=== PATIENT | male | born 1960 | race Caucasian/White ===

== ENCOUNTER 2016-12-17 08:33 | Day surgery (SDC) | payer MEDICARE, OTHER ==
[2016-12-15 15:37] VITALS: BMI 28.3
[~2016-12-17 08:33] MED LIST: ACETAMINOPHEN TAB 500 MG TAB PO ONE; DEXAMETHASONE SOD PHOSPHATE 10 MG/ML 1 ML VIAL IV ONE; FAMOTIDINE 20 MG/2 ML VIAL IV ONE; HYDROmorphone 1 MG/ML 1 ML SYRINGE IVP PRN; LACTATED RINGERS 1,000 ML IV SCH; LIDOCAINE 1% 20 ML VIAL (10MG/ML) FOR IV START INTRADERMA PRN; MIDAZOLAM 2 MG/2 ML VIAL IV PRN; ONDANSETRON 4 MG/2 ML VIAL IVP ONE; Pre Op ABX Message 1 EACH MISC MISCELLANE ONE; SCOPOLAMINE 1.5MG/72HR PATCH TRANSDERM ONE
[2016-12-17 09:29] LABS: Glucose,Whole Blood 134 mg/dL (75-99)
[2016-12-17] MEDS ORDERED: LIDOCAINE 1% INJ 10MG/ML (20 ML MDV) ONE ×2 (10:00)
[2016-12-17] MEDS ORDERED: PROPOFOL 10 MG/ML 20 ML VIAL IV ONE (10:00)
[2016-12-17] MEDS ORDERED: CIPROFLOXACIN-DEXAMETH 0.3-0.1% DROPS 7.5 ML BTL LEFT EAR ONE (10:14)
[2016-12-17 10:41] VITALS: TEMP 97
[2016-12-17] MEDS ORDERED: LACTATED RINGERS 1,000 ML IV ONE (10:44)
--- NOTE | 2016-12-17 10:53 | P.OP ---
Date of Procedure: 12/17/16 Preoperative Diagnosis: Eustachian tube dysfunction Chronic otitis media with effusion left ear Atrophic tympanic membrane Postoperative Diagnosis: Same Procedure(s) Performed: Left direct microscopic tympanostomy and tube placement with myringoplasty Anesthesia: MAC Surgeon: Luis Miguel Johansen Estimated Blood Loss (ml): 0 Pathology: none sent Condition: stable Disposition: PACU Indications for Procedure: This patient has had a persistent hearing losses eustachian tube dysfunction and left middle ear effusion. A ventilation tube was recommended. The ventilation tubes have not helped because of his severe atrophic changes and a T -tube was advised along with an examination of the ear under anesthesia. Operative Findings: Patient had a very thin atrophic tympanic membrane that was retracted with fluid present. We placed a T-tube but had to do a myringoplasty on the anterior portion of the tympanic membrane for the very thin drum to hold the tube. Description of Procedure: This patient was taken to the operative room and placed in the supine position. A general inhalation anesthetic was administered the patient by mask and subsequently monitored throughout the entire case by the department of anesthesia. A tympanostomy incision was made inferiorly fluid was suctioned and the drum was extremely thin and friable. The tube was placed utilizing a T- tube but the anterior portion of tympanic membrane was unable to hold the tube because of this thinness. We then prepped the edge of the eardrum with a [address] and cut a bilobed design graft in place that as an overlay graft to shore up the tympanic membrane to hold the tube. The drumhead was prepped with a house pick and the graft was placed in a position holding the anterior limb of the T-tube. The patient tolerated this well. Fluid was suctioned from the middle ear space and the patient is to follow-up in the office in 1 week for recheck.
[2016-12-17 11:01] VITALS: RESP 18
[2016-12-17 11:12] VITALS: BP 121/78; PULSE 71
== END 2016-12-17 11:29 | disposition home or self-care (01) ==
LOC: OR 08:33
PROVIDERS: ATTEND Otolaryngology
DX: H73.822 Atrophic nonflaccid tympanic membrane, left ear (principal); H69.92 Unspecified Eustachian tube disorder, left ear; H65.492 Other chronic nonsuppurative otitis media, left ear; I10 Essential (primary) hypertension; E78.5 Hyperlipidemia, unspecified; E11.9 Type 2 diabetes mellitus without complications; E07.9 Disorder of thyroid, unspecified; F32.9 Major depressive disorder, single episode, unspecified; F79 Unspecified intellectual disabilities; Z79.84 Long term (current) use of oral hypoglycemic drugs; Z79.899 Other long term (current) drug therapy
CPT/HCPCS: 69620; C1763; J1100; J2405; J2001; J2704

== ENCOUNTER 2017-01-13 09:23 | Day surgery (SDC) | payer MEDICARE, OTHER ==
[2017-01-08 09:33] VITALS: BMI 28.3
[~2017-01-13 09:23] MED LIST changes: -ACETAMINOPHEN TAB 500 MG TAB PO ONE; -DEXAMETHASONE SOD PHOSPHATE 10 MG/ML 1 ML VIAL IV ONE; -FAMOTIDINE 20 MG/2 ML VIAL IV ONE; -HYDROmorphone 1 MG/ML 1 ML SYRINGE IVP PRN; -MIDAZOLAM 2 MG/2 ML VIAL IV PRN; -ONDANSETRON 4 MG/2 ML VIAL IVP ONE; -Pre Op ABX Message 1 EACH MISC MISCELLANE ONE; -SCOPOLAMINE 1.5MG/72HR PATCH TRANSDERM ONE
[2017-01-13 09:47] VITALS: TEMP 98.1
[2017-01-13 10:02] LABS: Glucose,Whole Blood 94 mg/dL (75-99)
[2017-01-13] MEDS ORDERED: LIDOCAINE 1% INJ 10MG/ML (20 ML MDV) ONE (10:14)
[2017-01-13] MEDS ORDERED: PROPOFOL 10 MG/ML 20 ML VIAL IV ONE (10:14)
--- NOTE | 2017-01-13 10:20 | P.GSHP ---
History of Present Illness H&P Date: 01/13/17 Chief Complaint: Abdominal pain, screening Patient here today for colonoscopy. Per the records he is having some vague abdominal discomforts. He is also due for a screening colonoscopy. No bowel related complaints that I'm aware of at this time. Patient is not able to provide any significant history because of his mental disability. Past Medical History Past Medical History: Diabetes Mellitus, Thyroid Disorder Additional Past Medical History / Comment(s): ENVIRONMENTAL ALLERGIES, MENTALLY DISABLED, SCOLIOSIS, WEARS LEFT KNEE BRACE-KNEE OCCASIONALLY "POPS OUT "., having lower abdominal pain History of Any Multi-Drug Resistant Organisms: None Reported Past Surgical History: Ear Surgery, Hernia Repair, Orthopedic Surgery Additional Past Surgical History / Comment(s): RT KNEE TENDON SURGERY, TESTICLE REMOVED. Past Anesthesia/Blood Transfusion Reactions: Family History of Problems w/ Anesthesia Additional Past Anesthesia/Blood Transfusion Reaction / Comment(s): SISTER=PONV Past Psychological History: Anxiety Additional Psychological History / Comment(s): mentally disabled Smoking Status: Never smoker Past Alcohol Use History: None Reported Past Drug Use History: None Reported - Past Family History Sister(s) Family Medical History: Cancer Additional Family Medical History / Comment(s): KIDNEY CANCER Medications and Allergies Home Medications Medication Instructions Recorded Confirmed Type Cetirizine HCl 10 mg PO HS 02/05/16 01/13/17 History Escitalopram [Lexapro] 10 mg PO DAILY 02/05/16 01/13/17 History Levothyroxine Sodium [Synthroid] 75 mcg PO DAILY 02/05/16 01/13/17 History Multivitamin/Iron/Folic Acid 1 each PO DAILY 02/05/16 01/13/17 History [Centrum Complete Multivit Tab] Canagliflozin [Invokana] 100 mg PO QAM 12/15/16 01/13/17 History Simvastatin [Zocor] 40 mg PO PC-SUPPER 12/15/16 01/13/17 History metFORMIN HCL ER [Glucophage Xr] 500 mg PO QAM 12/15/16 01/13/17 History Allergies Allergy/AdvReac Type Severity Reaction Status Date / Time No Known Allergies Allergy Verified 01/13/17 09:47 Surgical - Exam Vital Signs Temp Pulse Resp BP Pulse Ox 98.1 F 89 20 131/72 99 01/13/17 09:46 01/13/17 09:46 01/13/17 09:46 01/13/17 09:46 01/13/17 09:46 Physical exam: General: Well-developed, well-nourished HEENT: Normocephalic, sclerae nonicteric Abdomen: Nontender, nondistended Extremities: No edema Neuro: Alert learning disabled Assessment and Plan (1) Colon cancer screening Narrative/Plan: Will proceed with colonoscopy at this time. Status: Acute
--- NOTE | 2017-01-13 10:39 | P.PCN ---
Date of Procedure: 01/13/17 Preoperative Diagnosis: Postoperative Diagnosis: Procedure(s) Performed: PREOPERATIVE DIAGNOSIS: Screening, abdominal pain POSTOPERATIVE DIAGNOSIS: Sigmoid colon polyp PROCEDURE: Colonoscopy with snare polypectomy ANESTHESIA: MAC SURGEON: Donis Maldonado M.D. SPECIMENS: Sigmoid colon polyp ENDOSCOPIC PROCEDURE: The patient was placed on the endoscopy table in the left decubitus position. The Olympus colonoscope was inserted into the anus and passed under direct visualization to the base of the cecum. The appendiceal orifice was visualized. From that point the scope was slowly withdrawn inspecting all surfaces carefully. There were no neoplastic inflammatory or polypoid lesions throughout the cecum, ascending, transverse, and descending colon. In the sigmoid colon a small polyp was identified and removed using the snare with cautery technique. The remainder of the sigmoid and rectum was normal. There was no diverticulosis. Digital rectal examination was normal. The patient was taken to the recovery room in stable condition per anesthesia guidelines. RECOMMENDATIONS: Await biopsy results. Implants: Indications for Procedure: Operative Findings: Description of Procedure:
[2017-01-13 10:49] VITALS: RESP 18
[2017-01-13 11:15] VITALS: BP 106/70; PULSE 82
== END 2017-01-13 11:54 | disposition home or self-care (01) ==
LOC: ORWHC2ENDO 09:23
PROVIDERS: ATTEND Surgery
DX: K63.5 Polyp of colon (principal); E11.9 Type 2 diabetes mellitus without complications; Z79.84 Long term (current) use of oral hypoglycemic drugs; E07.9 Disorder of thyroid, unspecified; F41.9 Anxiety disorder, unspecified; Z79.899 Other long term (current) drug therapy
CPT/HCPCS: 88305; 45385; J2001; J2704

== ENCOUNTER → 2017-02-19 | Outpatient (CLI) | payer MEDICARE, OTHER ==
--- NOTE | 2017-02-19 08:45 | CT ---
EXAMINATION TYPE: CT abdomen wo con DATE OF EXAM: 02/19/2017 COMPARISON: NONE HISTORY: 56-year-old male with abdominal pain TECHNIQUE: Contiguous axial scanning of the abdomen without IV contrast. Coronal and sagittal reconst ructions performed. CT DLP: 256.8 mGycm Automated exposure control for dose reduction was used. FINDINGS: Heart is normal size. Coronary vessel calcifications are present in remarkable for coronary artery di sease. Some strandy atelectasis or scar at the left base. There is a moderate-sized fat-containing left Bochdalek hernia. Noncontrast appearance of the liver, gallbladder, adrenal glands, spleen, and pancreas within normal limits. Subcentimeter hypodensity anterior mid pole right kidney too small for accurate CT characterization, probable cyst. There is a 1.4 cm nonobstructive calculus in the lower pole right kidney and a punctat e 2 mm calculus midpole left kidney. No hydronephrosis on either side. Tiny fatty umbilical hernia. No mesenteric or retroperitoneal lymphadenopathy. No dilated small bowel, free fluid, or free air. There is liquid stool throughout the right hemicolon and transverse colon. No pericolonic inflammator y changes seen. Note that the pelvis is not included on this examination. Bones: Degenerative disc disease lower lumbar spine. There is a levoconvex scoliosis centered along the thoracolumbar junction. IMPRESSION: 1. LIQUID STOOL WITHIN THE COLON. CORRELATE FOR ENTERITIS OR COLONIC ILEUS. 2. NONOBSTRUCTIVE 1.4 CM RIGHT RENAL CALCULUS AND A PUNCTATE 2 MM NONOBSTRUCTIVE CALCULUS ON THE LEFT . 3. A SUBCENTIMETER HYPODENSITY WITHIN THE MID RIGHT KIDNEY IS TOO SMALL FOR ADEQUATE CT CHARACTERIZAT ION BUT PROBABLY REPRESENTS A CYST. 4. NOTE THAT THE PELVIS IS NOT INCLUDED ON THIS EXAM. 5. LEVOSCOLIOSIS.
== END | disposition home or self-care (01) ==
LOC: RADCTMAIN 08:09
PROVIDERS: ATTEND Family Medicine
DX: N20.0 Calculus of kidney (principal)
CPT/HCPCS: 74150

== ENCOUNTER → 2017-08-12 | Outpatient (CLI) | payer MEDICARE, OTHER ==
[2017-08-12 11:41] LABS: Blood Urea Nitrogen 23 mg/dL (9-20); Non-African American GFR(MDRD) >60 (>60 ml/min/1.73 sqM)
--- NOTE | 2017-08-12 13:14 | CT ---
EXAMINATION TYPE: CT iac w con DATE OF EXAM: 08/12/2017 COMPARISON: NONE HISTORY: Hearing loss CT DLP: 150.00 mGycm Automated exposure control for dose reduction was used. CONTRAST: CT scan of the IACs is performed with IV Contrast, patient injected with 100 ml mL of Omnipaque 300. FINDINGS: Portion of the torus tubarius and fossa of Rosenmuller within the naxrb-ov-uosr is normal. There is mucosal thickening within the maxillary sinuses. Mild mucosal thickening is within ethmoid a ir cells. Frontal sinuses are aplastic. Sphenoid sinuses are clear. Adult Parole Officer spaces appear within normal limits. There is under pneumatization of the bilateral mastoid air cells. The upper mastoid air cells are thee ar. Lower mastoid air cells contain a small amount of fluid. Portions of the brain with contrast appear within normal limits. Anterior communicating artery is pat ent. Anterior and middle cerebral artery branching appears normal. Globes are symmetrical. Optic nerves are unremarkable. Attention is paid to the internal auditory canals. No suspicious expansion or erosion is evident. Anna hlea appear within normal limits. There is a high riding left jugular bulb. Some debris may be within the left external auditory canal. Incus and malleus have normal orientation. No suspicious cerebellar pontine angle masses are evident. No suspicious enhancement within the inter nal auditory canals is evident. The scutum are normal. Attics are clear. Semicircular canals are norm al. Vertebral arteries are normal. Internal carotid arteries appear normal. Ostiomeatal units are patent. IMPRESSION: 1. Normal internal auditory canal study. 2. Mild mucosal thickening within scattered ethmoid and maxillary sinuses discussed above. 3. Mild bilateral mastoiditis
== END | disposition home or self-care (01) ==
LOC: RADCTMAIN 10:57
PROVIDERS: ATTEND Otolaryngology
DX: H70.93 Unspecified mastoiditis, bilateral (principal); J34.89 Other specified disorders of nose and nasal sinuses
CPT/HCPCS: 82565; 84520; 70481; 36415; Q9967

== ENCOUNTER 2017-09-23 09:56 | Day surgery (SDC) | payer MEDICARE, OTHER ==
[2017-09-15 10:56] VITALS: BMI 26.7
[~2017-09-23 09:56] MED LIST changes: +DEXAMETHASONE SOD PHOSPHATE 10 MG/ML 1 ML VIAL IV ONE; +DEXAMETHASONE SOD PHOSPHATE 4 MG/ML 1 ML VIAL IV ONE; +FAMOTIDINE 20 MG/2 ML VIAL IV ONE; +HYDROmorphone 0.5 MG/0.5 ML SYRINGE IVP PRN; -LACTATED RINGERS 1,000 ML IV SCH; -LIDOCAINE 1% 20 ML VIAL (10MG/ML) FOR IV START INTRADERMA PRN; +MIDAZOLAM 2 MG/2 ML VIAL IV PRN; +ONDANSETRON 4 MG/2 ML VIAL IVP ONE; +Pre Op ABX Message 1 EACH MISC MISCELLANE ONE
[2017-09-23 11:24] VITALS: TEMP 97
[2017-09-23 11:38] LABS: Glucose,Whole Blood 135 mg/dL (75-99)
[2017-09-23] MEDS: LACTATED RINGERS 1,000 ML IV SCH ×2 (11:38→13:36)
[2017-09-23] MEDS: OXYMETAZOLINE 0.05% NASL SPRAY 1 SPRAY BOTTLE NASAL ONE ×5 (11:49→12:09)
[2017-09-23] MEDS ORDERED: MIDAZOLAM 2 MG/2 ML VIAL ONE (13:38)
[2017-09-23] MEDS ORDERED: PROPOFOL 10 MG/ML 20 ML VIAL IV ONE (13:38)
[2017-09-23] MEDS ORDERED: SUCCINYLCHOLINE CHLORIDE 100 MG/5 ML SYR IV ONE (13:38)
[2017-09-23] MEDS ORDERED: fentaNYL (PF) 50 MCG/ML 2 ML AMP ONE (13:38)
[2017-09-23] MEDS ORDERED: CIPROFLOXACIN-DEXAMETH 0.3-0.1% DROPS 7.5 ML BTL BOTH EARS ONE (14:06)
[2017-09-23] MEDS ORDERED: LACTATED RINGERS 1,000 ML IV ONE ×2 (14:41)
--- NOTE | 2017-09-23 14:42 | P.OP ---
Date of Procedure: 09/23/17 Preoperative Diagnosis: Chronic otitis media with effusion Eustachian tube dysfunction Hypertrophy of inferior nasal turbinates Postoperative Diagnosis: Same Procedure(s) Performed: Bilateral direct microscopic tympanostomy and tube placement Bilateral eustachian tuboplasty, balloon, endoscopic Bilateral submucosal resection of the posterior inferior turbinates with outfracturing compression Anesthesia: ROLAND Surgeon: Luis Miguel Johansen Estimated Blood Loss (ml): 5 Pathology: none sent Condition: stable Disposition: PACU Indications for Procedure: This patient has persistent chronic otitis media with effusion conductive hearing loss and eustachian tube dysfunction. He has hypertrophy of the posterior inferior turbinates causing compression of the eustachian tube. Tympanostomy and tube placement along with a balloon eustachian tuboplasty and removal of that hypertrophic area of the inferior turbinates bilaterally was recommended. Consent was obtained and all questions were answered Operative Findings: Patient was found have a bilateral middle ear effusion. Large obstructive inferior turbinates posteriorly are noted and the station too edema seen. Description of Procedure: Prior to surgery, all risks, benefits, and alternative therapies were discussed again with the patient and family. Risks of bleeding, need for second tubes, perforation, early extrusion of tubes, etc. etc. were explained. All questions were answered and a consent was obtained. This patient was taken to the operative room and placed in the supine position. Mask inhalation anesthesia was performed by the department of anesthesia. The patient was monitored throughout the entire case by the department of anesthesia. Both tympanic membranes were visualized with an operating Zeiss microscope. Cerumen and epithelial debris was removed from the external auditory canals bilaterally. The tympanic membranes were visualized under an operative microscope. Tympanostomy incisions were made inferiorly. Fluid was suctioned from the middle ear space with use of a #3 and #5 Posada suction with care to avoid any trauma to the middle ear structures. Ventilation tubes were then inserted bilaterally. Excellent placement was obtained. Attention was then paid to the inferior turbinates. The bilateral inferior turbinates were hypertrophic and obstructive. We entered the anterior portion of the inferior turbinates with use of a microdebrider. We remove bone and submucosal elements with use of a microdebrider bilaterally. The inferior turbinates underwent a submucosal resection with removal of submucosal tissue and bone. We obtained a much better and normal in size for breathing. The inferior turbinates were then outfractured and compressed with a Boyes nasal elevator. Excellent airway was obtained and was symmetric bilaterally. No bleeding was encountered. Attention was then paid to the posterior nasopharynx with use of a 0 Aragon bushra endoscope. We utilized an [employer] system. We insufflated the eustachian tube orifices bilaterally and did a standard balloon insufflation of the eustachian tubes bilaterally. The patient tolerated this well. The patient was then taken to the recovery room in excellent condition by the department of anesthesia and monitored through the recovery process by the recovery room nurse supervised by anesthesia. A follow-up appointment has been scheduled.
[2017-09-23 15:32] LABS: Glucose,Whole Blood 161 mg/dL (75-99)
[2017-09-23 16:05] VITALS: RESP 18
[2017-09-23 16:07] VITALS: BP 143/80; PULSE 69
== END 2017-09-23 16:35 | disposition home or self-care (01) ==
LOC: OR 09:56
PROVIDERS: ATTEND Otolaryngology
DX: H65.493 Other chronic nonsuppurative otitis media, bilateral (principal); H69.83 Other specified disorders of Eustachian tube, bilateral; H90.2 Conductive hearing loss, unspecified; J34.3 Hypertrophy of nasal turbinates; I10 Essential (primary) hypertension; E11.9 Type 2 diabetes mellitus without complications; Z79.84 Long term (current) use of oral hypoglycemic drugs; E78.00 Pure hypercholesterolemia, unspecified; E07.9 Disorder of thyroid, unspecified; Z79.2 Long term (current) use of antibiotics; Z79.811 Long term (current) use of aromatase inhibitors; Z79.899 Other long term (current) drug therapy
CPT/HCPCS: 69436; 30140; C1726; J2250; J1100; J2405; J3010; J0330; J2704

== ENCOUNTER 2019-10-13 06:36 | Day surgery (SDC) | payer MEDICARE, OTHER ==
[2019-10-04 14:35] VITALS: BMI 27.6
[~2019-10-13 06:36] MED LIST changes: -DEXAMETHASONE SOD PHOSPHATE 10 MG/ML 1 ML VIAL IV ONE; -DEXAMETHASONE SOD PHOSPHATE 4 MG/ML 1 ML VIAL IV ONE; -FAMOTIDINE 20 MG/2 ML VIAL IV ONE; -HYDROmorphone 0.5 MG/0.5 ML SYRINGE IVP PRN; +LACTATED RINGERS 1,000 ML IV SCH; -MIDAZOLAM 2 MG/2 ML VIAL IV PRN; -ONDANSETRON 4 MG/2 ML VIAL IVP ONE; -Pre Op ABX Message 1 EACH MISC MISCELLANE ONE
[2019-10-13 07:25] LABS: Glucose,Whole Blood 171 mg/dL (75-99)
[2019-10-13] MEDS ORDERED: MIDAZOLAM 2 MG/2 ML VIAL ONE (08:49)
[2019-10-13] MEDS ORDERED: PROPOFOL 10 MG/ML 20 ML VIAL IV ONE (08:49)
[2019-10-13] MEDS ORDERED: PHENYLEPHRINE-0.9% NACL SYG 1 MG/10 ML SYRINGE ONE (08:49)
[2019-10-13] MEDS ORDERED: LIDOCAINE 1% INJ 10MG/ML (20 ML MDV) ONE (08:49)
[2019-10-13] MEDS ORDERED: fentaNYL (PF) 50 MCG/ML 2 ML AMP ONE (08:49)
[2019-10-13] MEDS ORDERED: CIPROFLOXACIN-DEXAMETH 0.3-0.1% DROPS 7.5 ML BTL BOTH EARS ONE (09:09)
[2019-10-13 09:35] LABS: Glucose,Whole Blood 175 mg/dL (75-99)
[2019-10-13 09:37] VITALS: TEMP 97.2
--- NOTE | 2019-10-13 09:39 | P.OP ---
Date of Procedure: 10/13/19 Preoperative Diagnosis: Chronic otitis media with effusion Severe atrophic tympanic membrane Postoperative Diagnosis: Same Procedure(s) Performed: Bilateral direct microscopic tympanostomy and tube placement utilizing a T-tube Anesthesia: ROLAND Surgeon: Luis Miguel Johansen Estimated Blood Loss (ml): 0 Pathology: none sent Condition: stable Disposition: PACU Indications for Procedure: Patient has had chronic ear problems all of his life. He has severe atrophic tympanic membrane sent has a difficult time maintaining tube placement because of the extreme thinness of the tympanic membrane. T-tube placement was recommended. Operative Findings: Patient has severe atrophic tympanic membrane changes. T tubes were placed and fluid was suctioned. Description of Procedure: Prior to surgery, all risks, benefits, and alternative therapies were discussed again with the patient and family. Risks of bleeding, need for second tubes, perforation, early extrusion of tubes, etc. etc. were explained. All questions were answered and a consent was obtained. This patient was taken to the operative room and placed in the supine position. Mask inhalation anesthesia was performed by the department of anesthesia. The patient was monitored throughout the entire case by the department of anesthesia. Both tympanic membranes were visualized with an operating Zeiss microscope. Cerumen and epithelial debris was removed from the external auditory canals bilaterally. The tympanic membranes were visualized under an operative microscope. Tympanostomy incisions were made inferiorly. Fluid was suctioned from the middle ear space with use of a #3 and #5 Posada suction with care to avoid any trauma to the middle ear structures. This patient has severe atrophic changes to the tympanic membrane. The hepatic membrane is extremely thin. T-tube Ventilation tubes were then inserted bilaterally. Excellent placement was obtained. The patient was then taken to the recovery room in excellent condition by the department of anesthesia and monitored through the recovery process by the recovery room nurse supervised by anesthesia. A follow-up appointment has been scheduled.
[2019-10-13 10:01] VITALS: RESP 16
[2019-10-13 10:21] VITALS: BP 127/79; PULSE 77
== END 2019-10-13 10:38 | disposition home or self-care (01) ==
LOC: OR 06:36
PROVIDERS: ATTEND Otolaryngology
DX: H65.499 Other chronic nonsuppurative otitis media, unspecified ear (principal); H69.93 Unspecified Eustachian tube disorder, bilateral; H90.6 Mixed conductive and sensorineural hearing loss, bilateral; H61.23 Impacted cerumen, bilateral; H92.02 Otalgia, left ear; M54.81 Occipital neuralgia; H73.829 Atrophic nonflaccid tympanic membrane, unspecified ear; E78.5 Hyperlipidemia, unspecified; E11.9 Type 2 diabetes mellitus without complications; E07.9 Disorder of thyroid, unspecified; E78.00 Pure hypercholesterolemia, unspecified; R62.50 Unspecified lack of expected normal physiological development in childhood; Z79.890 Hormone replacement therapy; Z79.84 Long term (current) use of oral hypoglycemic drugs; Z79.899 Other long term (current) drug therapy; Z98.890 Other specified postprocedural states; Z83.3 Family history of diabetes mellitus; Z83.52 Family history of ear disorders
CPT/HCPCS: 69436; J2250; J2001; J3010; J2370; J2704

== ENCOUNTER 2020-09-05 07:14 | Day surgery (SDC) | payer MEDICARE, OTHER ==
[2020-08-30 13:23] VITALS: BMI 29.2
[~2020-09-05 07:14] MED LIST changes: +FAMOTIDINE 20 MG/2 ML VIAL IV PRN; +HYDROmorphone 0.5 MG/0.5 ML SYRINGE IVP PRN; +LIDOCAINE 1% (10MG/ML) FOR IV START INTRADERMA PRN; +ONDANSETRON 4 MG/2 ML VIAL IVP ONE; +Pre Op ABX Message 1 EACH MISC MISCELLANE ONE
[2020-09-05 07:49] VITALS: RESP 16; TEMP 97.7
[2020-09-05 08:01] LABS: Glucose,Whole Blood 145 mg/dL (75-99)
[2020-09-05] MEDS ORDERED: PROPOFOL 10 MG/ML 20 ML VIAL IV ONE (08:46)
[2020-09-05] MEDS ORDERED: LIDOCAINE 1% INJ 10MG/ML (20 ML MDV) ONE (08:46)
[2020-09-05] MEDS ORDERED: fentaNYL (PF) 50 MCG/ML 2 ML AMP ONE (08:46)
[2020-09-05] MEDS ORDERED: MIDAZOLAM 2 MG/2 ML VIAL ONE (08:46)
[2020-09-05] MEDS ORDERED: CIPROFLOX/FLUOCIN OTIC 0.25ML DROPERETTE OTIC ONE (09:15)
--- NOTE | 2020-09-05 10:01 | P.OP ---
Date of Procedure: 09/05/20 Preoperative Diagnosis: Conductive hearing loss bilaterally Chronic serous otitis media bilaterally Bilateral eustachian tube dysfunction Bilateral retraction pockets Postoperative Diagnosis: Same Procedure(s) Performed: Bilateral direct microscopic tympanostomy and T-tube placement with bilateral myringotomy Anesthesia: MAC Surgeon: Luis Miguel Johansen Estimated Blood Loss (ml): 0 Pathology: none sent Condition: stable Disposition: PACU Indications for Procedure: Patient has bilateral ear infections and nonfunctioning tubes. The tube removal and myringoplasty new tube placement and Gelfilm rhinoplasty were recommended. All risks, benefits, and alternative therapies were discussed. Consent was obtained and all questions were answered. Patient has been on multiple medical therapies and has failed medical treatment. Operative Findings: Patient had nonfunctioning tubes with serous fluid bilaterally and the tubes were removed there were tympanic membrane perforations that were patched and U T tubes were placed in a different location. Description of Procedure: This patient was taken to the operative room placed in the supine position. A gas inhalation anesthetic and sedation was administered by the department of anesthesia. Both ears were visualized with a 250 mm Zeiss microscope. Cerumen and epithelial debris was removed from the external auditory canals bilaterally. Old tubes were removed with myringotomies and house pick and alligator forceps. This left a perforation. We prepped both tympanic membranes perforations bilaterally with a house pick and cut a bio design graft in place that as an overlay graft and the holes were patched. On the contralateral portion of the inferior tympanic membrane myringotomies were performed and T tubes were placed. The patient tolerated this well and follow-up will be in the office in 1 week.
[2020-09-05 11:01] VITALS: BP 131/84; PULSE 92
== END 2020-09-05 11:03 | disposition home or self-care (01) ==
LOC: OR 07:14
PROVIDERS: ATTEND Otolaryngology
DX: H65.23 Chronic serous otitis media, bilateral (principal); H69.83 Other specified disorders of Eustachian tube, bilateral; H90.6 Mixed conductive and sensorineural hearing loss, bilateral; H72.93 Unspecified perforation of tympanic membrane, bilateral; E11.9 Type 2 diabetes mellitus without complications; I10 Essential (primary) hypertension; E78.5 Hyperlipidemia, unspecified; E07.9 Disorder of thyroid, unspecified; Z79.890 Hormone replacement therapy; Z79.84 Long term (current) use of oral hypoglycemic drugs; Z79.899 Other long term (current) drug therapy; Z98.890 Other specified postprocedural states; Z83.3 Family history of diabetes mellitus; Z83.52 Family history of ear disorders
CPT/HCPCS: 69436; C1763; J2250; J2405; J2001; J3010; J2704

== ENCOUNTER → 2023-06-03 | Outpatient (CLI) | payer MEDICARE, OTHER ==
--- NOTE | 2023-06-03 13:01 | MR ---
EXAMINATION TYPE: MR brain wo con DATE OF EXAM: 06/03/2023 11:49 AM CLINICAL INDICATION:Male, 62 years old with history of R51.9 headache; PHH, Headaches and neck pain, hearing loss bilat left side worse, COMPARISON: CT 08/12/2017. TECHNIQUE: Multi planar, multi sequence imaging was performed through the brain including: T1, T2, In version recovery, Diffusion weighted imaging, and gradient echo imaging. No gadolinium was given. FINDINGS: Mild cerebral atrophy with proportional dilation of ventricles. The ventura-white junctions, ventricular system, and cisterns appear unremarkable. Midline structures show no abnormality. Diffusion-weighted imaging shows no evidence of restricted diffusion. The susceptibility weighted images do not reveal any evidence for micro-hemorrhage. Suspected right cheek lipoma measuring up to 2.6 x 1.7 cm. The bone marrow signal is within normal limits. Paranasal sinuses and mastoid air cells: Mild scattered paranasal sinus disease. Visualized orbits: Orbital contents are intact. IMPRESSION: 1. No evidence of intracranial mass or acute/subacute infarct. 2. No evidence for internal auditory canal mass.
== END | disposition home or self-care (01) ==
LOC: RADMRIMAIN 10:28
PROVIDERS: ATTEND Neurological Surgery
DX: M48.02 Spinal stenosis, cervical region (principal); R51.9 Headache, unspecified
CPT/HCPCS: 70551

== ENCOUNTER 2023-08-19 06:42 | Day surgery (SDC) | payer MEDICARE, OTHER ==
[~2023-08-19 06:42] MED LIST changes: -FAMOTIDINE 20 MG/2 ML VIAL IV PRN; -HYDROmorphone 0.5 MG/0.5 ML SYRINGE IVP PRN; -LIDOCAINE 1% (10MG/ML) FOR IV START INTRADERMA PRN; -ONDANSETRON 4 MG/2 ML VIAL IVP ONE; -Pre Op ABX Message 1 EACH MISC MISCELLANE ONE
[2023-08-19 07:25] VITALS: TEMP 97
[2023-08-19] MEDS ORDERED: PROPOFOL 10 MG/ML 20 ML VIAL IV ONE (07:29)
[2023-08-19] MEDS ORDERED: LIDOCAINE 1% INJ 10MG/ML (20 ML MDV) ONE (07:29)
[2023-08-19 07:31] LABS: Glucose,Whole Blood 199 mg/dL (70-110)
--- NOTE | 2023-08-19 07:35 | P.GSHP ---
History of Present Illness H&P Date: 08/19/23 CHIEF COMPLAINT: Esophageal stricture HISTORY OF PRESENT ILLNESS: The patient is a 62-year-old male who presents reports dysphagia. Upper endoscopy was offered for further evaluation and management. PAST MEDICAL HISTORY: Please see list. PAST SURGICAL HISTORY: Please see list. MEDICATIONS: Please see list. ALLERGIES: Please see list. SOCIAL HISTORY: No illicit drug use FAMILY HISTORY: No reports of Crohn disease or ulcerative colitis. REVIEW OF ORGAN SYSTEMS: CONSTITUTIONAL: No reports of fevers or chills. GI: Denies any blood in stools or constipation. PHYSICAL EXAM: VITAL SIGNS: Stable GENERAL: Well-developed and pleasant in no acute distress. HEENT: No scleral icterus. Extraocular movements grossly intact. Moist buccal mucosa. NECK: Supple without lymphadenopathy. CHEST: Unlabored respirations. Equal bilateral excursions. CARDIOVASCULAR: Regular rate and rhythm. Distal 2+ pulses. ABDOMEN: Soft, nondistended. MUSCULOSKELETAL: No clubbing, cyanosis, or edema. ASSESSMENT: 1. Esophageal stricture PLAN: 1. Recommend proceeding with an upper endoscopy with rigid dilators. Past Medical History Past Medical History: Diabetes Mellitus, Hearing Disorder / Deafness, Hyperlipidemia, Thyroid Disorder Additional Past Medical History / Comment(s): Pt having difficulty swallowing. MENTALLY DISABLED/comprehension of approximately an 10 year old/very INUPIAT, possible starting of dementia, SCOLIOSIS, WEARS LEFT KNEE BRACE-KNEE OCCASIONALLY "POPS OUT" has to wear it during surgery if at all possible, left ankle brace/does not need to wear during surgery. History of Any Multi-Drug Resistant Organisms: None Reported Past Surgical History: Ear Surgery, Hernia Repair, Orthopedic Surgery Additional Past Surgical History / Comment(s): R KNEE SURGERY, ONE TESTICLE REMOVED, colonoscopy, wart on eyelid removed Past Anesthesia/Blood Transfusion Reactions: Family History of Problems w/ A nesthesia Additional Past Anesthesia/Blood Transfusion Reaction / Comment(s): sister-PONV Past Psychological History: Anxiety Additional Psychological History / Comment(s): Pt is mentally disabled. Resides with sisterKathryn, legal guardian. No device. Wears L knee and L ankle brace. Smoking Status: Never smoker Past Alcohol Use History: None Reported Past Drug Use History: None Reported - Past Family History Sister(s) Family Medical History: Cancer Additional Family Medical History / Comment(s): KIDNEY CANCER Medications and Allergies Home Medications Medication Instructions Recorded Confirmed Type Escitalopram [Lexapro] 10 mg PO DAILY 02/05/16 08/30/20 History Levothyroxine Sodium [Synthroid] 100 mcg PO QAM 02/05/16 08/11/23 History Multivitamin/Iron/Folic Acid 1 each PO QAM 02/05/16 08/11/23 History [Centrum Complete Multivit Tab] Simvastatin [Zocor] 40 mg PO HS 12/15/16 08/11/23 History metFORMIN HCL ER [Glucophage Xr] 1,000 mg PO BID 12/15/16 08/11/23 History Fexofenadine HCl 180 mg PO DAILY 09/15/17 08/11/23 History Empagliflozin [Jardiance] 25 mg PO QAM 10/04/19 08/11/23 History Pioglitazone HCl 30 mg PO QAM 08/11/23 08/11/23 History Sertraline HCl [Zoloft] 50 mg PO QAM 08/11/23 08/11/23 History Allergies Allergy/AdvReac Type Severity Reaction Status Date / Time No Known Allergies Allergy Verified 08/11/23 15:01 Surgical - Exam Vital Signs Temp Pulse Resp BP Pulse Ox 97 F L 86 20 134/73 97 08/19/23 07:13 08/19/23 07:13 08/19/23 07:13 08/19/23 07:13 08/19/23 07:13 Results - Labs Abnormal Lab Results - Last 24 Hours (Table) 08/19/23 Range/Units 07:22 POC Glucose (mg/dL) 199 H (70-110) mg/dL
--- NOTE | 2023-08-19 08:06 | P.PCN ---
Date of Procedure: 08/19/23 Description of Procedure: PREOPERATIVE DIAGNOSIS: Dysphagia. Gastroesophageal reflux disease POSTOPERATIVE DIAGNOSIS: Gastroesophageal reflux disease. Acute and chronic gastric ulcers with bleeding Gastric polyps Duodenal polyps Gastritis with bleeding Diaphragmatic hiatal hernia OPERATION: Esophagogastroduodenoscopy with biopsies along the esophagus, antrum and duodenum SURGEON: Yumi Goldman MD ANESTHESIA: MAC. INDICATIONS: The patient is a 62-year-old male who presents with reflux disease. Benefits and risks of the procedure were described. Informed consent was obtained. DESCRIPTION: The patient was brought into the endoscopy suite and laid in the left lateral decubitus position. An Olympus gastroscope was passed along the posterior oropharynx down to the distal esophagus where the squamocolumnar junction was encountered at 41 cm from the incisors. The stomach was entered and no bile reflux was found. Additional findings are listed below. Biopsies with cold forceps were obtained of the antrum. The first through third portion of the duodenum was examined. Retroflexion of the scope confirmed Hill grade 2 lower esophageal valve. The squamocolumnar junction demonstrated LA grade B erosive esophagitis. The stomach was desufflated. The patient tolerated the procedure well. FINDINGS: Squamocolumnar junction 41 cm from the incisors. Diaphragmatic hiatus at 42 cm. Hiatal hernia, 1 cm Hill grade 2 lower esophageal valve. LA grade B erosive esophagitis. Biopsies obtained Biopsies obtained of the duodenum. Chronic gastritis with biopsies obtained. Gastric polyps, hyperplastic mild to moderate this first drug stomach Duodenal hyperplasia biopsies obtained Acute on chronic diffuse gastric ulcers, 2 mm RECOMMENDATIONS: Protonix 40 mg daily Carafate 1 g twice daily Upper endoscopy in 4-6 week Plan - Discharge Summary Discharge Rx Participant: No New Discharge Prescriptions: Continue Levothyroxine Sodium [Synthroid] 100 mcg PO QAM Escitalopram [Lexapro] 10 mg PO DAILY Multivitamin/Iron/Folic Acid [Centrum Complete Multivit Tab] 1 each PO QAM metFORMIN HCL ER [Glucophage XR] 1,000 mg PO BID Simvastatin [Zocor] 40 mg PO HS Fexofenadine HCl 180 mg PO DAILY Empagliflozin [Jardiance] 25 mg PO QAM Pioglitazone HCl 30 mg PO QAM Sertraline HCl [Zoloft] 50 mg PO QAM Discharge Medication List Escitalopram [Lexapro] 10 mg PO DAILY 02/05/16 [History] Levothyroxine Sodium [Synthroid] 100 mcg PO QAM 02/05/16 [History] Multivitamin/Iron/Folic Acid [Centrum Complete Multivit Tab] 1 each PO QAM 02/05/16 [History] Simvastatin [Zocor] 40 mg PO HS 12/15/16 [History] metFORMIN HCL ER [Glucophage XR] 1,000 mg PO BID 12/15/16 [History] Fexofenadine HCl 180 mg PO DAILY 09/15/17 [History] Empagliflozin [Jardiance] 25 mg PO QAM 10/04/19 [History] Pioglitazone HCl 30 mg PO QAM 08/11/23 [History] Sertraline HCl [Zoloft] 50 mg PO QAM 08/11/23 [History] Follow up Appointment(s)/Referral(s): Yumi Goldman MD [STAFF PHYSICIAN] - 09/28/23 2:00 pm Patient Instructions/Handouts: Hiatal Hernia (DC), Diet for Stomach Ulcers and Gastritis (ED) Discharge Disposition: HOME SELF-CARE
[2023-08-19 08:27] LABS: Glucose,Whole Blood 194 mg/dL (70-110)
[2023-08-19 08:40] VITALS: BP 119/77; PULSE 78; RESP 18
--- NOTE | 2023-08-19 09:13 | P.PN ---
Progress Note - Text Progress Note Date: 08/19/23 Patient presents with features of GI bleed. Recommend stat CBC CMP.
[2023-08-19 09:34] LABS: Basophils % (A) 0 %; Eosinophils % (A) 1 %; HCT 43.5 % (39.0-53.0); HGB 14.2 gm/dL (13.0-17.5); Lymphocytes % (A) 23 %; MCH 31.8 pg (25.0-35.0); MCHC 32.7 g/dL (31.0-37.0); MCV 97.1 fL (80.0-100.0); Mean Platelet Volume 6.9; Monocytes # (A) 0.3 k/uL (0-1.0); Monocytes % (A) 8 %; Neutrophils # (A) 2.8 k/uL (1.3-7.7); Neutrophils % (A) 66 %; Platelet Count 315 k/uL (150-450); RBC 4.48 m/uL (4.30-5.90); RDW 14.2 % (11.5-15.5); WBC 4.2 k/uL (3.8-10.6)
[2023-08-19 09:50] LABS: ALT 23 U/L (4-49); AST 27 U/L (17-59); African American GFR (CKD) >90 (>60 ml/min/1.73 sqM); Albumin 3.8 g/dL (3.5-5.0); Alkaline Phosphatase 66 U/L (38-126); Anion Gap 14 mmol/L; Blood Urea Nitrogen 23 mg/dL (9-20); Calcium 8.5 mg/dL (8.4-10.2); Carbon Dioxide 23 mmol/L (22-30); Chloride 104 mmol/L (98-107); Glucose 240 mg/dL (74-99); Non-African American GFR(CKD) >90 (>60 ml/min/1.73 sqM); Potassium 4.2 mmol/L (3.5-5.1); Sodium 141 mmol/L (137-145); Total Bilirubin 0.6 mg/dL (0.2-1.3); Total Protein 6.4 g/dL (6.3-8.2)
== END 2023-08-19 09:39 | disposition home or self-care (01) ==
LOC: ORWHC2ENDO 06:42
PROVIDERS: ATTEND Surgery Plastic and Reconstructive Surgery
DX: K29.51 Unspecified chronic gastritis with bleeding (principal); K25.4 Chronic or unspecified gastric ulcer with hemorrhage; K31.7 Polyp of stomach and duodenum; K44.9 Diaphragmatic hernia without obstruction or gangrene; K21.9 Gastro-esophageal reflux disease without esophagitis; K22.2 Esophageal obstruction; E11.9 Type 2 diabetes mellitus without complications; H91.90 Unspecified hearing loss, unspecified ear; E78.5 Hyperlipidemia, unspecified; E07.9 Disorder of thyroid, unspecified; F41.9 Anxiety disorder, unspecified; F03.90 Unspecified dementia, unspecified severity, without behavioral disturbance, psychotic disturbance, mood disturbance, and anxiety; Z90.79 Acquired absence of other genital organ(s); Z98.890 Other specified postprocedural states; Z80.9 Family history of malignant neoplasm, unspecified; Z79.890 Hormone replacement therapy; Z79.84 Long term (current) use of oral hypoglycemic drugs; Z79.899 Other long term (current) drug therapy
CPT/HCPCS: 88305; 80053; 85025; 43239; J2001; J2704

== ENCOUNTER → 2023-09-29 | Outpatient (CLI) | payer MEDICARE, OTHER ==
[2023-09-29 15:35] LABS: HCT 45.5 % (39.6-50.0); HGB 14.6 g/dL (13.0-17.0); MCH 31.3 pg (27.0-32.0); MCHC 32.1 g/dL (32.0-37.0); MCV 97.6 FL (80.0-97.0); Mean Platelet Volume 9.5 FL (9.5-12.2); NRBC Per 100 WBC 0 X 10*3/uL (0.00-0.01); Platelet Count 372 X 10*3/uL (140-440); RBC 4.66 X 10*6/uL (4.40-5.60); RDW 14.7 % (11.5-14.5); WBC 4.05 X 10*3/uL (4.50-10.00)
[2023-09-29 15:46] LABS: Prealbumin 22.7 mg/dL (18.0-42.0)
[2023-09-29 16:06] LABS: % Iron Saturation 24.82 (15.00-50.00); ALT 22 U/L (10-49); AST 23 U/L (14-35); Albumin 4.6 g/dL (3.8-4.9); Alkaline Phosphatase 68 U/L (41-126); BUN/Creat Ratio 27.43 Ratio (12.00-20.00); Blood Urea Nitrogen 19.2 mg/dL (9.0-27.0); Calcium 9.7 mg/dL (8.7-10.3); Carbon Dioxide 27.2 mmol/L (21.6-31.8); Chloride 99 mmol/L (96-109); Chol/HDL Ratio 2.22 Ratio; Ferritin 64.6 ng/mL (22.0-322.0); Globulin 2.7 g/dL (1.6-3.3); Glucose 167 mg/dL (70-110); INR 1.02 sec (0.93-1.11); Iron 105 UG/DL (65-175); LDL Cholesterol,Calculated 86.3 mg/dL (0.0-131.0); Phosphorus 4.2 mg/dL (2.4-5.1); Potassium 4.7 mmol/L (3.5-5.5); Sodium 142 mmol/L (135-145); T4, Free (Free Thyroxine) 1.82 ng/dL (0.80-1.80); Total Bilirubin 0.5 mg/dL (0.3-1.2); Total Iron Binding Capacity 423 UG/DL (228-460); Total Protein 7.3 g/dL (6.2-8.2); VLDL Calculation 18.46 mg/dL (5.00-40.00)
[2023-09-30 12:53] LABS: Zinc, Serum 116 ug/dL (60-130)
[2023-10-01 06:11] LABS: Vitamin A 64 ug/dL (38-106)
[2023-10-01 10:28] LABS: Vit B1(Thiamine) 67 ug/L (38-122)
== END | disposition home or self-care (01) ==
LOC: LABWHC1 09:21
PROVIDERS: ATTEND Psychiatry & Neurology Neurology
DX: E66.01 Morbid (severe) obesity due to excess calories (principal); D50.9 Iron deficiency anemia, unspecified; E89.1 Postprocedural hypoinsulinemia; E44.1 Mild protein-calorie malnutrition; E55.9 Vitamin D deficiency, unspecified; K74.1 Hepatic sclerosis; T56.894A Toxic effect of other metals, undetermined, initial encounter; R41.3 Other amnesia; Z79.899 Other long term (current) drug therapy
CPT/HCPCS: 36415; 80053; 80061; 82306; 82525; 82607; 82728; 82746; 83036; 83540; 83550; 83735; 83970; 84100; 84134; 84255; 84425; 84439; 84443; 84590; 84630; 85027; 85610; 85730

== ENCOUNTER → 2023-10-07 | Outpatient (CLI) | payer MEDICARE, OTHER | END | disposition home or self-care (01) | LOC: LABWHC1 10:06 | PROVIDERS: ATTEND Surgery Plastic and Reconstructive Surgery | DX: E44.1 Mild protein-calorie malnutrition (principal); E66.01 Morbid (severe) obesity due to excess calories; D50.9 Iron deficiency anemia, unspecified; K91.2 Postsurgical malabsorption, not elsewhere classified | CPT/HCPCS: 36415; 84443; 85730 ==

== ENCOUNTER 2023-11-17 08:33 | Day surgery (SDC) | payer MEDICARE, OTHER ==
--- NOTE | 2023-11-17 08:28 | P.GSHP ---
History of Present Illness H&P Date: 11/17/23 CHIEF COMPLAINT: GERD HISTORY OF PRESENT ILLNESS: The patient is a 63-year-old male who presents reports gastroesophageal reflux disease. Upper endoscopy was offered for further evaluation and management. PAST MEDICAL HISTORY: Please see list. PAST SURGICAL HISTORY: Please see list. MEDICATIONS: Please see list. ALLERGIES: Please see list. SOCIAL HISTORY: No illicit drug use FAMILY HISTORY: No reports of Crohn disease or ulcerative colitis. REVIEW OF ORGAN SYSTEMS: CONSTITUTIONAL: No reports of fevers or chills. GI: Denies any blood in stools or constipation. PHYSICAL EXAM: VITAL SIGNS: Stable GENERAL: Well-developed and pleasant in no acute distress. HEENT: No scleral icterus. Extraocular movements grossly intact. Moist buccal mucosa. NECK: Supple without lymphadenopathy. CHEST: Unlabored respirations. Equal bilateral excursions. CARDIOVASCULAR: Regular rate and rhythm. Distal 2+ pulses. ABDOMEN: Soft, nondistended. MUSCULOSKELETAL: No clubbing, cyanosis, or edema. ASSESSMENT: 1. Gastroesophageal reflux disease PLAN: 1. Recommend proceeding with an upper endoscopy Past Medical History Past Medical History: Diabetes Mellitus, Hearing Disorder / Deafness, Hyperlipidemia, Thyroid Disorder Additional Past Medical History / Comment(s): Pt having difficulty swallowing. MENTALLY DISABLED/comprehension of approximately an 10 year old/very [employer] [place], possible starting of dementia, SCOLIOSIS, WEARS LEFT KNEE BRACE-KNEE OCCASIONALLY "POPS OUT" has to wear it during surgery if at all possible, left ankle brace/does not need to wear during surgery. History of Any Multi-Drug Resistant Organisms: None Reported Past Surgical History: Ear Surgery, Hernia Repair, Orthopedic Surgery Additional Past Surgical History / Comment(s): R KNEE SURGERY, ONE TESTICLE REMOVED, colonoscopy, wart on eyelid removed Past Anesthesia/Blood Transfusion Reactions: Family History of Problems w/ Anesthesia Additional Past Anesthesia/Blood Transfusion Reaction / Comment(s): sister-PONV Smoking Status: Never smoker - Past Family History Sister(s) Family Medical History: Cancer Additional Family Medical History / Comment(s): KIDNEY CANCER Medications and Allergies Home Medications Medication Instructions Recorded Confirmed Type Levothyroxine Sodium [Synthroid] 112 mcg PO DAILY 02/05/16 11/12/23 History Multivitamin/Iron/Folic Acid 1 each PO QAM 02/05/16 11/12/23 History [Centrum Complete Multivit Tab] Simvastatin [Zocor] 40 mg PO HS 12/15/16 11/12/23 History metFORMIN HCL ER [Glucophage XR] 1,000 mg PO BID 12/15/16 11/12/23 History Fexofenadine HCl 180 mg PO DAILY 09/15/17 11/12/23 History Empagliflozin [Jardiance] 25 mg PO QAM 10/04/19 11/12/23 History Pioglitazone HCl 30 mg PO QAM 08/11/23 11/12/23 History Sertraline HCl [Zoloft] 50 mg PO QAM 08/11/23 11/12/23 History Melatonin [Melatonin ER] 10 mg PO HS 11/12/23 11/12/23 History Sucralfate [Carafate] 1 gm PO HS 11/12/23 11/12/23 History Allergies Allergy/AdvReac Type Severity Reaction Status Date / Time No Known Allergies Allergy Verified 11/12/23 12:12
[~2023-11-17 08:33] MED LIST changes: -LACTATED RINGERS 1,000 ML IV SCH; +LIDOCAINE 1% (10MG/ML) FOR IV START INTRADERMA PRN
[2023-11-17] MEDS: LACTATED RINGERS 1,000 ML IV SCH (08:59)
[2023-11-17 09:14] LABS: Glucose,Whole Blood 159 mg/dL (70-110)
[2023-11-17 09:16] VITALS: TEMP 97.3
[2023-11-17] MEDS ORDERED: LIDOCAINE 1% INJ 10MG/ML (20 ML MDV) ONE (09:44)
[2023-11-17] MEDS ORDERED: PROPOFOL 10 MG/ML 20 ML VIAL IV ONE (09:44)
--- NOTE | 2023-11-17 10:19 | P.PCN ---
Date of Procedure: 11/17/23 Description of Procedure: PREOPERATIVE DIAGNOSIS: Gastric ulcers Gastroesophageal reflux disease. POSTOPERATIVE DIAGNOSIS: Duodenal hyperplasia with polyp Esophageal diverticulum, upper OPERATION: Esophagogastroduodenoscopy with biopsies duodenum SURGEON: Yumi Goldman MD ANESTHESIA: MAC. INDICATIONS: The patient is a 63-year-old female who presents with severe gastric ulcers. Benefits and risks of the procedure were described. Informed consent was obtained. DESCRIPTION: The patient was brought into the endoscopy suite and laid in the left lateral decubitus position. An Olympus gastroscope was passed along the posterior oropharynx down to the distal esophagus where the squamocolumnar junction was encountered at 38 cm from the incisors. The stomach was entered and no bile reflux was found. Additional findings are listed below. Biopsies with cold forceps were obtained of the antrum. The first through third portion of the duodenum was examined. Retroflexion of the scope confirmed Hill grade 2 lower esophageal valve. The squamocolumnar junction demonstrated LA grade B erosive esophagitis. The stomach was desufflated. The patient tolerated the procedure well. FINDINGS: Squamocolumnar junction 38 cm from the incisors. Diaphragmatic hiatus at 38 cm. Hill grade 2 lower esophageal valve. LA grade B erosive esophagitis. Biopsies obtained of the duodenum with duodenal hyperplasia/polyp Resolved gastric ulcers Esophageal diverticulum, upper esophagus Chronic gastritis with biopsies obtained. RECOMMENDATIONS: Recommend barium swallow to identify size of esophageal diverticulum Plan - Discharge Summary Discharge Rx Participant: No New Discharge Prescriptions: Continue Levothyroxine Sodium [Synthroid] 112 mcg PO DAILY Multivitamin/Iron/Folic Acid [Centrum Complete Multivit Tab] 1 each PO QAM metFORMIN HCL ER [Glucophage XR] 1,000 mg PO BID Simvastatin [Zocor] 40 mg PO HS Fexofenadine HCl 180 mg PO DAILY Empagliflozin [Jardiance] 25 mg PO QAM Pioglitazone HCl 30 mg PO QAM Sertraline HCl [Zoloft] 50 mg PO QAM Sucralfate [Carafate] 1 gm PO HS Melatonin [Melatonin ER] 10 mg PO HS Discharge Medication List Levothyroxine Sodium [Synthroid] 112 mcg PO DAILY 02/05/16 [History] Multivitamin/Iron/Folic Acid [Centrum Complete Multivit Tab] 1 each PO QAM 02/05/16 [History] Simvastatin [Zocor] 40 mg PO HS 12/15/16 [History] metFORMIN HCL ER [Glucophage XR] 1,000 mg PO BID 12/15/16 [History] Fexofenadine HCl 180 mg PO DAILY 09/15/17 [History] Empagliflozin [Jardiance] 25 mg PO QAM 10/04/19 [History] Pioglitazone HCl 30 mg PO QAM 08/11/23 [History] Sertraline HCl [Zoloft] 50 mg PO QAM 08/11/23 [History] Melatonin [Melatonin ER] 10 mg PO HS 11/12/23 [History] Sucralfate [Carafate] 1 gm PO HS 11/12/23 [History] Follow up Appointment(s)/Referral(s): Yumi Goldman MD [STAFF PHYSICIAN] - 12/14/23 11:00 am Patient Instructions/Handouts: Gastritis (GEN) Discharge Disposition: HOME SELF-CARE
[2023-11-17 10:36] VITALS: BP 112/68; PULSE 78; RESP 16
== END 2023-11-17 10:45 | disposition home or self-care (01) ==
LOC: ORWHC2ENDO 08:33
PROVIDERS: ATTEND Surgery Plastic and Reconstructive Surgery
DX: K29.50 Unspecified chronic gastritis without bleeding (principal); K21.00 Gastro-esophageal reflux disease with esophagitis, without bleeding; K31.7 Polyp of stomach and duodenum; K25.9 Gastric ulcer, unspecified as acute or chronic, without hemorrhage or perforation; Q39.6 Congenital diverticulum of esophagus; E11.9 Type 2 diabetes mellitus without complications; E78.5 Hyperlipidemia, unspecified; F79 Unspecified intellectual disabilities; E07.9 Disorder of thyroid, unspecified; Z79.84 Long term (current) use of oral hypoglycemic drugs; Z90.79 Acquired absence of other genital organ(s); Z79.890 Hormone replacement therapy; Z80.51 Family history of malignant neoplasm of kidney; Z79.899 Other long term (current) drug therapy
CPT/HCPCS: 43239; J2001; J2704; 88305

== ENCOUNTER 2024-04-20 11:38 | Emergency (ER) | payer MEDICARE, OTHER ==
[2024-04-20] MEDS: ZINC OXIDE PASTE (Z-GUARD) 1 APPLIC TOPICAL ONE (12:30)
[2024-04-20 13:03] LABS: Basophils % (A) 0 %; Eosinophils # (A) 0.1 k/uL (0-0.7); Eosinophils % (A) 1 %; HGB 13.2 gm/dL (13.0-17.5); Lymphocytes # (A) 0.9 k/uL (1.0-4.8); Lymphocytes % (A) 10 %; MCH 31.4 pg (25.0-35.0); MCV 95.2 fL (80.0-100.0); Mean Platelet Volume 6.9; Monocytes # (A) 0.5 k/uL (0-1.0); Monocytes % (A) 6 %; Neutrophils # (A) 7.6 k/uL (1.3-7.7); Neutrophils % (A) 81 %; Platelet Count 393 k/uL (150-450); RBC 4.21 m/uL (4.30-5.90); WBC 9.4 k/uL (3.8-10.6)
[2024-04-20 13:14] LABS: INR 0.9 (<1.2); Partial Thromboplastin Time 25.7 sec (22.0-30.0); Prothrombin Time 10.2 sec (10.0-12.5)
[2024-04-20] MEDS: SODIUM CHLORIDE 0.9% 1,000 ML IV STA (13:16)
[2024-04-20 13:20] LABS: ALT 17 U/L (4-49); AST 28 U/L (17-59); African American GFR (CKD) >90 (>60 ml/min/1.73 sqM); Albumin 4.2 g/dL (3.5-5.0); Alkaline Phosphatase 68 U/L (38-126); Anion Gap 7 mmol/L; Blood Urea Nitrogen 26 mg/dL (9-20); Calcium 9.3 mg/dL (8.4-10.2); Carbon Dioxide 27 mmol/L (22-30); Chloride 100 mmol/L (98-107); Glucose 163 mg/dL (74-99); Lipase 548 U/L (23-300); Non-African American GFR(CKD) >90 (>60 ml/min/1.73 sqM); Potassium 4.8 mmol/L (3.5-5.1); Sodium 134 mmol/L (137-145); Total Bilirubin 0.7 mg/dL (0.2-1.3); Total Protein 6.8 g/dL (6.3-8.2)
[2024-04-20 13:26] LABS: RBC,Urine >182 /hpf (0-5); WBC,Urine 43 /hpf (0-5)
[2024-04-20 13:27] LABS: Appearance,Urine Bloody (Clear); Color,Urine Dark Red
--- NOTE | 2024-04-20 13:45 | CT ---
EXAMINATION TYPE: CT abdomen pelvis wo con CT DLP: 351.5 mGycm, Automated exposure control for dose reduction was used. DATE OF EXAM: 04/20/2024 1:17 PM COMPARISON: 02/19/2017 CLINICAL INDICATION: Male, 63 years old with history of abdominal pain, hematuria; Hematuria. TECHNIQUE: Axial CT abdomen pelvis wo con;Sagittal and coronal reformats were created on a separate workstation. Contrast used: mL of , (none if empty) Oral contrast used: without Oral Contrast (none if empty) FINDINGS: LOWER CHEST: Unremarkable ABDOMEN LIVER: Unremarkable GALLBLADDER AND BILE DUCTS: Unremarkable. PANCREAS: Unremarkable. SPLEEN: Unremarkable. ADRENAL GLANDS: Unremarkable. KIDNEYS AND URETERS: Nonobstructing left 3 mm and right 16 mm renal calculi. Right renal cyst. PELVIS BLADDER: Nondistended with Pink catheter in place. High density material in the bladder lumen possib ly representing traumatic for catheter sequela with blood products. REPRODUCTIVE: Unremarkable. ABDOMEN & PELVIS STOMACH AND BOWEL: No evidence of bowel obstruction. Large amount stool in the rectum and sigmoid col on measuring up to 7.6 cm in transverse dimension. PERITONEUM/RETROPERITONEUM: No evidence of pneumoperitoneum or free fluid. VASCULATURE: No evidence of aortic aneurysm. MUSCULOSKELETAL: No acute osseous abnormalities. Moderate disc degeneration changes are present throu ghout the thoracolumbar spine. Scoliosis changes of the spine. Bilateral pars interarticularis defect s of L5. LYMPH NODES: No gross evidence for lymphadenopathy. SOFT TISSUE/ABDOMINAL WALL: Unremarkable IMPRESSION: 1. Pink catheter in appropriate position. High density proximally and about a could represent blood products correlate with urinalysis. 2. Nonobstructing bilateral renal calculi. 3. Large amount stool in the rectum and sigmoid colon measuring up to 7.6 cm in transverse dimension . 4. Bilateral spondylolysis of L5. No spondylolisthesis definitively visualized.
--- NOTE | 2024-04-20 14:48 | ED ---
Male Urogenital HPI - General Chief complaint: Urogenital Stated complaint: Blood in urine Time Seen by Provider: 04/20/24 11:51 Source: family, EMS, RN notes reviewed Mode of arrival: EMS Limitations: language barrier, altered mental status, physical limitation - History of Present Illness Initial comments: 63-year-old male presents emergency department with caregivers for evaluation of hematuria. Patient noted that hematuria on the floor at home. Patient has no history of blood thinners, no history of kidney stones has never had hematuria in the past. Family states they have not been able to change his briefs in approximate 1 week. Patient's been having loose stools no reported fever. Patient is cognitively impaired and unable to provide any information all information given by caregivers. - Related Data Home Medications Medication Instructions Recorded Confirmed Simvastatin [Zocor] 40 mg PO DAILY 12/15/16 04/20/24 metFORMIN HCL ER [Glucophage XR] 1,000 mg PO BID 12/15/16 04/20/24 Pioglitazone HCl 30 mg PO DAILY 08/11/23 04/20/24 Melatonin [Melatonin ER] 10 mg PO HS 11/12/23 04/20/24 Empagliflozin [Jardiance] 25 mg PO DAILY 04/20/24 04/20/24 Levothyroxine Sodium [Synthroid] 125 mcg PO DAILY 04/20/24 04/20/24 Omeprazole [PriLOSEC] 40 mg PO HS 04/20/24 04/20/24 Sertraline [Zoloft] 100 mg PO DAILY 04/20/24 04/20/24 Previous Rx's Medication Instructions Recorded Sulfamethox-Tmp 800-160Mg [Bactrim 1 each PO Q12HR #14 tab 04/20/24 Ds] Allergies Allergy/AdvReac Type Severity Reaction Status Date / Time No Known Allergies Allergy Verified 04/20/24 14:59 Review of Systems ROS Statement: Those systems with pertinent positive or pertinent negative responses have been documented in the HPI. ROS Other: All systems not noted in ROS Statement are negative. Past Medical History Past Medical History: Diabetes Mellitus, Hearing Disorder / Deafness, Hyperlipidemia, Thyroid Disorder Additional Past Medical History / Comment(s): Pt having difficulty swallowing. MENTALLY DISABLED/comprehension of approximately an 10 year old/very [place], possible starting of dementia, SCOLIOSIS, WEARS LEFT KNEE BRACE-KNEE OCCASIONALLY "POPS OUT" has to wear it during surgery if at all possible, left ankle brace/does not need to wear during surgery. History of Any Multi-Drug Resistant Organisms: None Reported Past Surgical History: Ear Surgery, Hernia Repair, Orthopedic Surgery Additional Past Surgical History / Comment(s): R KNEE SURGERY, ONE TESTICLE REMOVED, colonoscopy, wart on eyelid removed Past Anesthesia/Blood Transfusion Reactions: Family History of Problems w/ Anesthesia Additional Past Anesthesia/Blood Transfusion Reaction / Comment(s): sister-PONV Past Psychological History: Anxiety Smoking Status: Never smoker - Past Family History Sister(s) Family Medical History: Cancer Additional Family Medical History / Comment(s): KIDNEY CANCER General Exam Limitations: language barrier, altered mental status, physical limitation General appearance: alert, in no apparent distress Neck exam: Present: normal inspection. Absent: tenderness, meningismus, lymphadenopathy Respiratory exam: Present: normal lung sounds bilaterally. Absent: respiratory distress, wheezes, rales, rhonchi, stridor Cardiovascular Exam: Present: regular rate, normal rhythm, normal heart sounds. Absent: systolic murmur, diastolic murmur, rubs, gallop, clicks GI/Abdominal exam: Present: soft, normal bowel sounds. Absent: distended, tenderness, guarding, rebound, rigid exam: Absent: normal inspection (Erythematous skin breakdown and changes throughout the pelvic region and rectal) Neurological exam: Present: alert Skin exam: Present: warm, rash Course Vital Signs 04/20/24 04/20/24 11:47 14:00 Temperature 97.6 F Pulse Rate 83 80 Respiratory 19 12 Rate Blood Pressure 115/70 121/75 O2 Sat by Pulse 99 98 Oximetry Medical Decision Making - Medical Decision Making Was pt. sent in by a medical professional or institution (, PA, LINE MANAGER, urgent care, hospital, or long term...) When possible be specific @ -No Did you speak to anyone other than the patient for history (EMS, parent, family, police, friend...)? What history was obtained from this source @ -Family providing all history Did you review nursing and triage notes (agree or disagree)? Why? @ -I reviewed and agree with nursing and triage notes Were old charts reviewed (outside hosp., previous admission, EMS record, old EKG, old radiological studies, urgent care reports/EKG's, long term records)? Report findings @ -No old charts were reviewed Differential Diagnosis (chest pain, altered mental status, abdominal pain women, abdominal pain men, vaginal bleeding, weakness, fever, dyspnea, syncope, headache, dizziness, GI bleed, back pain, seizure, CVA, palpatations, mental health, musculoskeletal)? @ -Differential Abdominal Pain Men: Appendicitis, cholecystitis, diverticulosis, ischemic bowel, pancreatitis, hepatitis, UTI, gastroenteritis, AAA, incarcerated hernia, bowel obstruction, constipation, inflammatory bowel, hepatitis, peptic ulcer disease, splenic infarction, perforated viscus, testicular torsion, this is not meant to be an all-inclusive list EKG interpreted by me (3pts min.). @ -None X-rays interpreted by me (1pt min.). @ -None done CT interpreted by me (1pt min.). @ -CT of abdomen pelvis showing evidence of constipation otherwise no acute masses or acute findings U/S interpreted by me (1pt. min.). @ -None done What testing was considered but not performed or refused? (CT, X-rays, U/S, labs)? Why? @ -None What meds were considered but not given or refused? Why? @ -None Did you discuss the management of the patient with other professionals (professionals i.e. , PA, LINE MANAGER, lab, RT, psych nurse, social sciences research scientist, clinical nurse, teacher, svp chief marketing officer, case liner)? Give summary @ -No Was smoking cessation discussed for >3mins.? @ -No Was critical care preformed (if so, how long)? @ -No Were there social determinants of health that impacted care today? How? (Homelessness, low income, unemployed, alcoholism, drug addiction, transportation, low edu. Level, literacy, decrease access to med. care, fpc, rehab)? @ -No Was there de-escalation of care discussed even if they declined (Discuss DNR or withdrawal of care, Hospice)? DNR status @ -No What co-morbidities impacted this encounter? (DM, HTN, Smoking, COPD, CAD, Cancer, CVA, ARF, Chemo, Hep., AIDS, mental health diagnosis, sleep apnea, morbid obesity)? @ -None Was patient admitted / discharged? Hospital course, mention meds given and route, prescriptions, significant lab abnormalities, going to OR and other p ertinent info. @ -Discharge patient presented for hematuria patient found to have noted constipation adenomas provided patient does have hemorrhagic cystitis placed on oral antibiotics urine is cultured. Patient will follow-up with urology return transfer discussed. Undiagnosed new problem with uncertain prognosis? @ -No Drug Therapy requiring intensive monitoring for toxicity (Heparin, Nitro, In sulin, Cardizem)? @ -No Were any procedures done? @ -No Diagnosis/symptom? @ -Hemorrhagic cystitis, constipation Acute, or Chronic, or Acute on Chronic? @ -[Acute Uncomplicated (without systemic symptoms) or Complicated (systemic symptoms)? @ -Uncomplicated Side effects of treatment? @ -[No Exacerbation, Progression, or Severe Exacerbation? @ -No Poses a threat to life or bodily function? How? (Chest pain, [place], VA, pneumonia, PE, COPD, DKA, ARF, appy, cholecystitis, CVA, Diverticulitis, Homicidal, Suicidal, threat to staff... and all critical care pts) @ -No - Lab Data Result diagrams: 04/20/24 12:54 04/20/24 12:54 Lab Results 04/20/24 04/20/24 04/20/24 Range/Units 12:54 12:54 12:54 WBC 9.4 (3.8-10.6) k/uL RBC 4.21 L (4.30-5.90) m/uL Hgb 13.2 (13.0-17.5) gm/dL Hct 40.0 (39.0-53.0) % MCV 95.2 (80.0-100.0) fL MCH 31.4 (25.0-35.0) pg MCHC 33.0 (31.0-37.0) g/dL RDW 14.0 (11.5-15.5) % Plt Count 393 (150-450) k/uL MPV 6.9 Neutrophils % 81 % Lymphocytes % 10 % Monocytes % 6 % Eosinophils % 1 % Basophils % 0 % Neutrophils # 7.6 (1.3-7.7) k/uL Lymphocytes # 0.9 L (1.0-4.8) k/uL Monocytes # 0.5 (0-1.0) k/uL Eosinophils # 0.1 (0-0.7) k/uL Basophils # 0.0 (0-0.2) k/uL PT 10.2 (10.0-12.5) sec INR 0.9 (<1.2) APTT 25.7 (22.0-30.0) sec Sodium (137-145) mmol/L Potassium (3.5-5.1) mmol/L Chloride (98-107) mmol/L Carbon Dioxide (22-30) mmol/L Anion Gap mmol/L BUN (9-20) mg/dL Creatinine (0.66-1.25) mg/dL Est GFR (CKD-EPI)AfAm (>60 ml/min/1.73 sqM) Est GFR (CKD-EPI)NonAf (>60 ml/min/1.73 sqM) Glucose (74-99) mg/dL Plasma Lactic Acid [place] (0.7-2.0) mmol/L Calcium (8.4-10.2) mg/dL Total Bilirubin (0.2-1.3) mg/dL AST (17-59) U/L ALT (4-49) U/L Alkaline Phosphatase (38-126) U/L Total Protein (6.3-8.2) g/dL Albumin (3.5-5.0) g/dL Lipase (23-300) U/L Urine Color Dark Red Urine Appearance Bloody (Clear) Urine RBC >182 H (0-5) /hpf Urine WBC 43 H (0-5) /hpf 04/20/24 04/20/24 Range/Units 12:54 12:54 WBC (3.8-10.6) k/uL RBC (4.30-5.90) m/uL Hgb (13.0-17.5) gm/dL Hct (39.0-53.0) % MCV (80.0-100.0) fL MCH (25.0-35.0) pg MCHC (31.0-37.0) g/dL RDW (11.5-15.5) % Plt Count (150-450) k/uL MPV Neutrophils % % Lymphocytes % % Monocytes % % Eosinophils % % Basophils % % Neutrophils # (1.3-7.7) k/uL Lymphocytes # (1.0-4.8) k/uL Monocytes # (0-1.0) k/uL Eosinophils # (0-0.7) k/uL Basophils # (0-0.2) k/uL PT (10.0-12.5) sec INR (<1.2) APTT (22.0-30.0) sec Sodium 134 L (137-145) mmol/L Potassium 4.8 (3.5-5.1) mmol/L Chloride 100 (98-107) mmol/L Carbon Dioxide 27 (22-30) mmol/L Anion Gap 7 mmol/L BUN 26 H (9-20) mg/dL Creatinine 0.47 L (0.66-1.25) mg/dL Est GFR (CKD-EPI)AfAm >90 (>60 ml/min/1.73 sqM) Est GFR (CKD-EPI)NonAf >90 (>60 ml/min/1.73 sqM) Glucose 163 H (74-99) mg/dL Plasma Lactic Acid [place] 2.0 (0.7-2.0) mmol/L Calcium 9.3 (8.4-10.2) mg/dL Total Bilirubin 0.7 (0.2-1.3) mg/dL AST 28 (17-59) U/L ALT 17 (4-49) U/L Alkaline Phosphatase 68 (38-126) U/L Total Protein 6.8 (6.3-8.2) g/dL Albumin 4.2 (3.5-5.0) g/dL Lipase 548 H (23-300) U/L Urine Color Urine Appearance (Clear) Urine RBC (0-5) /hpf Urine WBC (0-5) /hpf Disposition Clinical Impression: Hemorrhagic cystitis, Constipation Disposition: HOME SELF-CARE Condition: Stable Instructions (If sedation given, give patient instructions): Urinary Tract Infection in Men (ED) Additional Instructions: Please return to the Emergency Department if symptoms worsen or any other concerns. Prescriptions: Sulfamethox-Tmp 800-160Mg [Bactrim Ds] 1 each PO Q12HR #14 tab Is patient prescribed a controlled substance at d/c from ED?: No Referrals: Philippe Varner DO [Primary Care Provider] - 1-2 days Time of Disposition: 15:10
[2024-04-20] MEDS: MAGNESIUM CITRATE 296 ML BOTTLE PO ONE (17:49)
[2024-04-20 18:05] VITALS: BP 114/75; PULSE 89; RESP 22; TEMP 98.3
== END 2024-04-20 18:05 | disposition home or self-care (01) ==
LOC: EC 11:38
DX: N30.91 Cystitis, unspecified with hematuria (principal); N20.0 Calculus of kidney; K59.00 Constipation, unspecified
CPT/HCPCS: 36415; 74176; 80053; 81001; 83605; 83690; 85025; 85610; 85730; 87077; 87086; 87186; 96360; 99284